=== PATIENT | male | born 2000 | race Two or more races ===

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

== ENCOUNTER 2018-08-23 18:14 | Emergency (ER) | payer SELFPAY ==
[~2018-08-23] VITALS: Ht 170.2 cm; Wt 63.5 kg
[2018-08-23] MEDS ORDERED: diphenhydrAMINE HCL 25 MG CAPSULE PO ONE (18:45)
[2018-08-23] MEDS ORDERED: FAMOTIDINE 20 MG/2 ML VIAL IVP ONE (18:45)
[2018-08-23] MEDS ORDERED: methylPREDNISolone SOD SUCC PF 125 MG/2 ML VIAL. IV ONE (18:45)
[2018-08-23] MEDS ORDERED: FAMO-63 PO (21:07)
[2018-08-23] MEDS ORDERED: PRED50TA PO (21:07)
--- NOTE | 2018-08-23 21:07 | PHYS DOC ---
Past Medical History Past Medical History: No Pertinent History Past Surgical History: No Surgical History Alcohol Use: Occasionally Drug Use: None Adult General Chief Complaint Chief Complaint: ALLERGIC REACTION HPI HPI Patient is a 17 year old male presents with acute allergic episode. Patient with hives to torso, upper extremities and chest tightness with shortness of breath. Symptom onset was 40 minutes prior to ED arrival. Patient did take Benadryl with some improvement. Denies known allergen exposure. No history of anaphylaxis. No new medications, household products or food ingestion. Patient arrives by EMS.] Review of Systems Review of Systems Review symptoms as per history of present illness. All other review symptoms are negative. All other systems were reviewed and found to be within normal limits, except as documented in this note. Current Medications Current Medications Current Medications Medications (Trade) Dose Ordered Sig/Kevin Start Time Stop Time Status Last Admin Dose Admin Diphenhydramine HCl (Benadryl) 25 mg 1X ONCE 08/23/18 18:45 08/23/18 18:46 DC 08/23/18 19:00 25 MG Famotidine (Pepcid Vial) 20 mg 1X ONCE 08/23/18 18:45 08/23/18 18:46 DC 08/23/18 19:01 20 MG Methylprednisolone Sodium Succinate (SOLU-Medrol 125MG VIAL) 125 mg 1X ONCE 08/23/18 18:45 08/23/18 18:46 DC 08/23/18 19:00 125 MG Allergies Allergies Allergies Coded Allergies Type Severity Reaction Last Updated Verified No Known Drug Allergies 01/12/17 No Physical Exam Physical Exam Constitutional: Well developed, well nourished, no acute distress, non-toxic appearance. [] HENT: Normocephalic, atraumatic, bilateral external ears normal, oropharynx moist, no oral exudates, nose normal. [] Eyes: PERRLA, EOMI, conjunctiva normal. [] Neck: Normal range of motion, no tenderness, supple. [] Cardiovascular:Heart rate regular rhythm, no murmur [] Lungs & Thorax: Bilateral breath sounds clear to auscultation [] Abdomen: Bowel sounds normal, soft, no tenderness. [] Skin: Splotchy hives to torso, upper extremities.. [] Back: No tenderness, no CVA tenderness. [] Extremities: No tenderness, no cyanosis, no clubbing, ROM intact, no edema. [] Neurologic: Alert and oriented, normal motor function, normal sensory function, no focal deficits noted. [] Psychologic: Affect normal, judgement normal, mood normal. [] Current Patient Data Vital Signs Vital Signs Date Time Temp Pulse Resp B/P (MAP) Pulse Ox O2 Delivery O2 Flow Rate FiO2 08/23/18 18:15 98.2 76 14 125/62 (83) 98 Room Air 98.2 EKG EKG [] Radiology/Procedures Radiology/Procedures [] Course & Med Decision Making Course & Med Decision Making Pertinent Labs and Imaging studies reviewed. (See chart for details) [Pepcid, Solu-Medrol, total and Pepcid given. Symptoms fully resolved.] Dragon Disclaimer Dragon Disclaimer This electronic medical record was generated, in whole or in part, using a voice recognition dictation system. Departure Departure Impression: Primary Impression: Urticaria Disposition: HOME, SELF-CARE Condition: Referrals: NO PCP (PCP) Patient Instructions: Hives, [id number] Additional Instructions: Take newly prescribed medications as directed. Try to identify and avoid allergen exposure. If hives worsen or he becomes short of breath or develop airway swelling, contact EMS and return to the ED. Scripts Prednisone (PREDNISONE) 50 Mg Tablet 1 TAB PO DAILY, #5 TAB Prov: AKASH CLARK DO 08/23/18 Famotidine (PEPCID) 20 Mg Tablet 20 MG PO BID, #20 TAB Prov: AKASH CLARK DO 08/23/18 AKASH CLARK DO Aug 23, 2018 21:07
[2018-08-23 21:19] VITALS: BP 116/56
== END 2018-08-23 22:03 | disposition home or self-care (01) ==
LOC: ER 18:14
DX: L50.9 Urticaria, unspecified (principal); R07.89 Other chest pain; R06.02 Shortness of breath
CPT/HCPCS: 96374; 96375; 99284; J2930; Q0163; S0028

== ENCOUNTER 2021-04-14 20:35 | Emergency (ER) | payer SELFPAY ==
[~2021-04-14] VITALS: Ht 170.2 cm; Wt 70.5 kg
[~2021-04-14 20:35] MED LIST: FAMO-63 PO; PRED50TA PO
--- NOTE | 2021-04-14 22:22 | PHYS DOC ---
Past Medical History Past Medical History: No Pertinent History (JESUS JIN [employer]IATE) Past Surgical History: No Surgical History (JESUS JIN APRN) Smoking Status: Current Every Day Smoker Alcohol Use: Occasionally Drug Use: None (JESUS JIN APRN) General Adult EDM: Chief Complaint: NAUSEA/VOMITING/DIARRHEA HPI: HPI: Patient is a 20 year old male who presents with 1 week of generalized weakness with nausea and vomiting. He denies fever, abdominal pain, cough, headache, dizziness, back pain, body aches, chills, chest pain, shortness of breath. Past medical history is smoking, anxiety, bronchial spasms. (JESUS JIN [employer]IATE) Review of Systems: Review of Systems: Constitutional: Denies fever or chills. [] Eyes: Denies change in visual acuity. [] HENT: Denies nasal congestion or sore throat. [] Respiratory: Denies cough or shortness of breath. [] Cardiovascular: Denies chest pain or edema. [] GI: Denies abdominal pain, +nausea, +vomiting, bloody stools or diarrhea. [] : Denies dysuria. [] Musculoskeletal: Denies back pain or joint pain. + Generalized weakness [] Integument: Denies rash. [] Neurologic: Denies headache, focal weakness or sensory changes. [] Endocrine: Denies polyuria or polydipsia. [] Lymphatic: Denies swollen glands. [] Psychiatric: Denies depression or anxiety. [] (JESUS JIN [employer]IATE) Heart Score: C/O Chest Pain: No Risk Factors: Risk Factors: DM, Current or recent (<one month) smoker, HTN, HLP, family history of CAD, obesity. Risk Scores: Score 0 - 3: 2.5% MACE over next 6 weeks - Discharge Home Score 4 - 6: 20.3% MACE over next 6 weeks - Admit for Clinical Observation Score 7 - 10: 72.7% MACE over next 6 weeks - Early Invasive Strategies (JESUS JIN [employer]IATE) Current Medications: Current Medications Medications (Trade) Dose Ordered Sig/Kevin Start Time Stop Time Status Last Admin Dose Admin Famotidine (Pepcid Vial) 20 mg 1X ONCE 04/14/21 22:30 04/14/21 22:31 Ondansetron HCl (Zofran) 4 mg 1X ONCE 04/14/21 22:30 04/14/21 22:31 Sodium Chloride 1,000 ml @ 1,000 mls/hr 1X ONCE 04/14/21 22:30 04/14/21 23:29 (ROBERTAPRINCESS ENGLELEONA Velasco [employer] ASSOCIATE) Allergies: Allergies: Allergies Coded Allergies Type Severity Reaction Last Updated Verified No Known Drug Allergies 01/12/17 No (DAVINJESUSLEONA Velasco APRN) Physical Exam: PE: Constitutional: Well developed, well nourished, no acute distress, non-toxic appearance. [] HENT: Normocephalic, atraumatic, bilateral external ears normal, oropharynx moist, no oral exudates, nose normal. [] Eyes: PERRLA, EOMI, conjunctiva normal, no discharge. [] Neck: Normal range of motion, no tenderness, supple, no stridor. [] Cardiovascular:Heart rate regular rhythm, no murmur [] Lungs & Thorax: Bilateral breath sounds clear to auscultation [] Abdomen: Bowel sounds normal, soft, no tenderness, no masses, no pulsatile ma sses. [] Skin: Warm, dry, no erythema, no rash. [] Back: No tenderness, no CVA tenderness. [] Extremities: No tenderness, no cyanosis, no clubbing, ROM intact, no edema. [] Neurologic: Alert and oriented X 3, normal motor function, norm Normal physical exam [] (JESUS JIN APRN) Current Patient Data: Vital Signs: Vital Signs Date Time Temp Pulse Resp B/P (MAP) Pulse Ox O2 Delivery O2 Flow Rate FiO2 04/14/21 21:30 98.5 67 18 151/92 (111) 100 Room Air 98.5 (DAVINJESUS M STORE GIFT WRAP ASSOCIATE) EKG: EKG: [] ([facility]AP [facility]OCI[facility]) Radiology/Procedures: Radiology/Procedures: [] Impression: [facility] [address] [place] [address] IMAGING REPORT Signed PATIENT: LUCINDA THOMSON ACCOUNT: [id number] : 2000 LOCATION: ER AGE: 20 SEX: M EXAM STATUS: REG ER ORD. PHYSICIAN: JESUS JIN APRN REASON: vomiting, weakness PROCEDURE: ACUTE ABDOMEN SERIES Acute Abdominal Series: Technique: PA view of the chest and supine and upright views of the abdomen were obtained. History: Pain. Comparison: None. Findings: The lungs and pleural margins are clear. There is air scattered the colon. There is a few air-filled loops of small bowel in the left upper quadrant. There is no evidence of abnormally dilated bowel. There is no free air. Impression: Abnormal bowel gas pattern suggesting a mild ileus in the left upper quadrant. Occasionally this bowel gas pattern can be seen with acute appendicitis and clinical correlation is suggested. Electronically signed by: Lakisha De Anda III, MD (04/14/2021 11:27 PM) [facility] DICTATED and SIGNED BY: LAKISHA DE ANDA III, MD DATE: 04/14/21 [id number] (JESUS JIN APRN) Impression: omparison:None. Procedure: Contiguous axial images of the abdomen and pelvis were performed after the administration of 75 cc of Omni 300 IV contrast. Oral contrast: No. Findings: The gallbladder is normal. The appendix is not well seen however there is a small caliber loop of bowel inferior to the cecum which could be a normal abhinav endix. There is moderate wall thickening in the ascending colon best seen on image #44. Liver: Unremarkable Spleen: Unremarkable Pancreas: Unremarkable Adrenal Glands: Unremarkable Kidneys: Unremarkable There is no mass or lymphadenopathy. There is no free air. There is no free fluid. The urinary bladder appears normal. Impression: Mild wall thickening of the ascending colon could be inflammatory or infectious colitis. There is no diverticulitis. There is no air in the wall to suggest ischemic colitis. End Impression PQRS Compliance Statement: One or more of the following individualized dose reduction techniques were ut ilized for this examination: 1. Automated exposure control 2. Adjustment of the mA and/or kV according to patient size 3. Use of iterative reconstruction technique (BRUCE CHIU DO) Course & Med Decision Making: Course & Med Decision Making Pertinent Labs and Imaging studies reviewed. (See chart for details) COVID-19 CRITERIA: The patient was evaluated during the global COVID-19 pandemic, and that diagnosis was suspected/considered upon their initial presentation. Their evaluation, treatment and testing was consistent with current guidelines for patients who present with complaints or symptoms that may be related to COVID-19. See HPI. Alert and oriented x4. Ambulatory with a steady gait. Skin pink warm and dry. Abdomen is soft and nontender. Lungs are clear to all station all lobes. Speaks in full clear sentences. Afebrile. Vital signs within normal limits. Patient is Covid tested. (JESUS JIN APRN) Course & Med Decision Making Results reviewed and discussed with patient. Patient to be discharged home. Rx zofran. (BRUCE CHIU DO) Dragon Disclaimer: Latrice Disclaimer: This electronic medical record was generated, in whole or in part, using a voice recognition dictation system. (JESUS JIN APRN) COVID-19 Patient Risks: Age 65 or older: No Sign of co-morbidity: Yes Exp to person + for COVID: No Exp to PUI: No Travel from affected area: No Lower respiratory symptoms: No Fever: No Other: Yes (N/V) (JESUS JIN APRN) PPE Use: Full PPE with N95 mask or PAPR: Yes (JESUS JIN APRN) Departure Departure Impression: Primary Impression: Gastroenteritis Additional Impression: Colitis Disposition: 01 HOME / SELF CARE / HOMELESS Condition: STABLE Referrals: NO PCP (PCP) Patient Instructions: Viral Gastroenteritis Scripts Ondansetron Hcl (ZOFRAN) 4 Mg Tablet 1 TAB PO Q6HRS, #20 TAB Prov: BRUCE CHIU DO 04/15/21 JESUS JIN APRN April 14, 2021 22:22 BRUCE CHIU DO April 15, 2021 00:16
[2021-04-14] MEDS ORDERED: IV NORMAL SALINE 1000ML BAG 1,000 ML IV ONE (22:30)
[2021-04-14] MEDS ORDERED: FAMOTIDINE 20 MG/2 ML VIAL IVP ONE (22:30)
[2021-04-14] MEDS ORDERED: ONDANSETRON PF 4 MG/2 ML VIAL. IVP ONE (22:30)
[2021-04-14 23:20] LABS: BASO % 1 % (0-3); EOS % 1 % (0-3); HEMATOCRIT 46.6 % (39.0-53.0); HEMOGLOBIN 16.1 g/dL (13.0-17.5); LYMPH # 2.6 x10^3/uL (1.0-4.8); LYMPH % 28 % (24-48); MEAN CORPUSCULAR HEMOGLOBIN 31 pg (25-35); MEAN CORPUSCULAR HGB CONC 35 g/dL (31-37); MEAN CORPUSCULAR VOLUME 90 fL (79-100); MONO # 0.7 x10^3/uL (0.0-1.1); MONO % 8 % (0-9); NEUT # 5.7 x10^3/uL (1.8-7.7); NEUT % 63 % (31-73); PLATELET COUNT 286 x10^3/uL (140-400); RED BLOOD COUNT 5.17 x10^6/uL (4.30-5.70); RED CELL DISTRIBUTION WIDTH 12.4 % (11.5-14.5); WHITE BLOOD COUNT 9.1 x10^3/uL (4.0-11.0)
[2021-04-14 23:22] LABS: BILIRUBIN,URINE NEGATIVE (NEG); CLARITY,URINE CLEAR; COLOR,URINE YELLOW; NITRITE,URINE NEGATIVE (NEG); PH,URINE 6.5 (<5.0-8.0); PROTEIN,URINE NEGATIVE (NEG-TRACE)
[2021-04-14 23:27] LABS: BACTERIA,URINE 0 /HPF (0-FEW); RBC,URINE 0 /HPF (0-2); WBC,URINE 0 /HPF (0-4)
[2021-04-14] MEDS ORDERED: ONDA4TAB12 PO (23:29)
[2021-04-14 23:30] LABS: CALCIUM 8.8 mg/dL (8.5-10.1); CREATININE 0.9 mg/dL (0.7-1.3); GFR 105.5; POTASSIUM 4.2 mmol/L (3.5-5.1)
--- NOTE | 2021-04-14 23:30 | RAD ---
Acute Abdominal Series: Technique: PA view of the chest and supine and upright views of the abdomen were obtained. History: Pain. Comparison: None. Findings: The lungs and pleural margins are clear. There is air scattered the colon. There is a few air-filled loops of small bowel in the left upper quadrant. There is no evidence of abnormally dilated bowel. Th ere is no free air. Impression: Abnormal bowel gas pattern suggesting a mild ileus in the left upper quadrant. Occasionally this german l gas pattern can be seen with acute appendicitis and clinical correlation is suggested. Electronically signed by: Sharan Lynn III, MD (04/14/2021 11:27 PM) [facility]
[2021-04-14 23:36] LABS: ALBUMIN 4.8 g/dL (3.4-5.0); ALBUMIN/GLOBULIN RATIO 1.5 (1.0-1.7); TOTAL BILIRUBIN 0.8 mg/dL (0.2-1.0)
[2021-04-14] MEDS ORDERED: CONTRAST GIVEN. MC PRN (23:45)
[2021-04-15] VITALS: BP 137/70
[2021-04-15] MEDS ORDERED: IOHEXOL 300 MG/ML 100ML VIAL. IV ONE
--- NOTE | 2021-04-15 00:10 | RAD ---
CT OF THE ABDOMEN AND PELVIS WITH IV CONTRAST. History: Reason: abdnormal acute abdominal series, OMNI 300, 75 ML IV / Spl. Instructions: / Histor y: Comparison:None. Procedure: Contiguous axial images of the abdomen and pelvis were performed after the administration of 75 cc o f Omni 300 IV contrast. Oral contrast: No. Findings: The gallbladder is normal. The appendix is not well seen however there is a small caliber loop of bow el inferior to the cecum which could be a normal appendix. There is moderate wall thickening in the ascending colon best seen on image #44. Liver: Unremarkable Spleen: Unremarkable Pancreas: Unremarkable Adrenal Glands: Unremarkable Kidneys: Unremarkable There is no mass or lymphadenopathy. There is no free air. There is no free fluid. The urinary bladder appears normal. Impression: Mild wall thickening of the ascending colon could be inflammatory or infectious colitis. There is no diverticulitis. There is no air in the wall to suggest ischemic colitis. End Impression PQRS Compliance Statement: One or more of the following individualized dose reduction techniques were utilized for this examinat ion: 1. Automated exposure control 2. Adjustment of the mA and/or kV according to patient size 3. Use of iterative reconstruction technique Electronically signed by: Sharan Lynn III, MD (04/15/2021 12:08 AM) [facility] [place]
[2021-04-15] MEDS ORDERED: ONDA4TAB7 PO (00:19)
--- NOTE | 2021-04-15 15:10 | NUR ---
IP: Attempted to contact pt concerning covid results. No answer, left a voicemail to return the call.
--- NOTE | 2021-04-15 15:23 | NUR ---
IP: Pt returned my call. Informed pt of negative covid test. Pt verbalized understanding.
== END 2021-04-15 00:30 | disposition home or self-care (01) ==
LOC: ER 20:35
DX: K52.9 Noninfective gastroenteritis and colitis, unspecified (principal); Z20.822 Contact with and (suspected) exposure to COVID-19; F17.200 Nicotine dependence, unspecified, uncomplicated
CPT/HCPCS: 36415; 74022; 74177; 80053; 81001; 83690; 85025; 96361; 96374; 96375; 99285; J2405; J3490; J7030; Q9967; U0003; U0005